=== PATIENT | female | born 1985 ===

== ENCOUNTER 2016-08-29 18:48 | Emergency (ER) | payer OTHER ==
[~2016-08-29] VITALS: Ht 162.6 cm; Wt 68.0 kg
[2016-08-29 18:53] VITALS: BP 106/63
--- NOTE | 2016-08-29 21:40 | ED GI/GU/ABDOMINAL COMPLAINT ---
History of Present Illness General Chief Complaint: Female Urogenital Problems Stated Complaint: ?TAMPON STUCK INSIDE Source: patient Exam Limitations: no limitations Allergies Coded Allergies: No Known Allergies (08/29/16) Triage Note: PT STATES SHE HAS A TAMPON INSIDE OF HER SINCE MONDAY THAT SHE HAS NOT BEEN ABLE TO GET OUT. Triage Nurses Notes Reviewed? yes ? N Is pt currently ? No HPI: This patient is a 31-year-old female who presented to the emergency department today for a chief complaint of, "I think my tampon is stuck inside." She reported that she believes tampon has been in since Monday. She thinks that the string on it came off because she could not find the string. She reported that she tried to get out on her own but thinks that she pushed it in further. She denied any pain, abdominal pain, nausea, vomiting, fevers, chills, or back pain. The patient denied any urinary symptoms. She did report a foul discharge over the last day. (MEGHAN KUNZ PA-C) Vital Signs & Intake/Output Vital Signs & Intake/Output Vital Signs Date Time Temp Pulse Resp B/P B/P Pulse O2 O2 Flow FiO2 Mean Ox Delivery Rate 08/29 1853 96.8 56 16 106/63 98 Room Air ED Intake and Output 08/30 0000 08/29 1200 Intake Total Output Total Balance Patient 150 lb Weight Weight Reported by Patient Measurement Method Past History Travel History Traveled to [place] past 21 day No Medical History Any Pertinent Medical History? see below for history Psychiatric: depression Surgical History Surgical History: non-contributory Psychosocial History What is your primary language Afghan Tobacco Use: Never used ETOH Use: occasional use Illicit Drug Use: denies illicit drug use Family History Hx Contributory? No (MEGHAN KUNZ PA-C) Review of Systems Review of Systems Constitutional: Reports: no symptoms. EENTM: Reports: no symptoms. Respiratory: Reports: no symptoms. Cardiovascular: Reports: no symptoms. GI: Reports: no symptoms. Genitourinary: Reports: see HPI. Musculoskeletal: Reports: no symptoms. Skin: Reports: no symptoms. Neurological/Psychological: Reports: no symptoms. All Other Systems: Reviewed and Negative (MEGHAN KUNZ PA-C) Physical Exam Physical Exam Gastrointestinal: normal bowel sounds, soft, non-tender, no organomegaly Comments: Well-developed well-nourished no apparent distress. HEENT: Head normocephalic, moist mucous membranes Neck: Supple, no lymphadenopathy Back: Normal gait Respiratory: No respiratory distress. Speaking in full sentences Extremities: No edema, full range of motion Neuro: Alert and oriented x3 Psych: Mood affect normal, normal memory normal judgment. Skin: Warm and dry, no rash on exposed skin Core Measures ACS in differential dx? No Severe Sepsis Present: No Septic Shock Present: No (MEGHAN KUNZ PA-C) Progress Differential Diagnosis: endometritis, PID/cervicitis, UTI/pyelo, RETAINED FOREIGN BODY IN VAGINA Plan of Care: This patient is a 31-year-old female who presented to the emergency department today for evaluation of questionable tampon stuck in her vagina. The patient has no associated symptoms; no fevers, chills, abdominal pain, back pain. I used sterile technique to perform a speculum examination. I visualized the tampon. Forceps were used to extract the tampon from the vagina. The patient tolerated the procedure well. She is stable for discharge home. Initial ED EKG: none (MEGHAN KUNZ PA-C) Departure Departure Disposition: HOME OR SELF CARE Condition: Stable Clinical Impression Primary Impression: Retained tampon Qualifiers: Encounter type: initial encounter Qualified Code: T19.2XXA - Foreign body in vulva and vagina, initial encounter Referrals: UNKNOWN (PCP/Family) Additional Instructions: Please be sure to stay hydrated. Return for any worsening symptoms, fevers, chills, abdominal pain, or for any other concerns. Departure Forms: Customer Survey General Discharge Information (MEGHAN KUNZ PA-C) PA/CARDIAC CATH TECHNOLOGIST Co-Sign Statement Statement: ED Attending supervision documentation- [] I saw and evaluated the patient. I have also reviewed all the pertinent lab results and diagnostic results. I agree with the findings and the plan of care as documented in the PA's/CARDIAC CATH TECHNOLOGIST's documentation. [x] I have reviewed the ED Record and agree with the PA's/CARDIAC CATH TECHNOLOGIST's documentation. [] Additions or exceptions (if any) to the PAs/CARDIAC CATH TECHNOLOGIST's note and plan are summarized below: [] (PETER CHRISTIANSON,PEPE Morrison)
== END 2016-08-29 21:43 ==
LOC: ERH 18:48
DX: T19.2XXA Foreign body in vulva and vagina, initial encounter (principal)
CPT/HCPCS: 99282